=== PATIENT | male | born 1950 | race Caucasian/White ===

== ENCOUNTER 2023-01-29 03:54 | Day surgery (SDC) | payer OTHER ==
[2023-01-25 10:37] VITALS: BMI 27.3
[2023-01-29 06:34] VITALS: RESP 18
[2023-01-29] MEDS ORDERED: ONDANSETRON 4 MG/2 ML VIAL ONE (07:45)
[2023-01-29] MEDS ORDERED: MIDAZOLAM HCL 2 MG/2 ML SINGLE DOSE VIAL ONE (07:45)
[2023-01-29 08:32] VITALS: TEMP 97.2
[2023-01-29 09:16] VITALS: BP 126/80; PULSE 66
== END 2023-01-29 09:20 | disposition home or self-care (01) ==
LOC: JASU-SURG 03:54
PROVIDERS: ATTEND Urology
PROC: 0TF4XZZ Fragmentation in Left Kidney Pelvis, External Approach (ICD-10-PCS; principal; 2023-01-29 08:00)
DX: N20.0 Calculus of kidney (principal)

== ENCOUNTER 2024-01-01 03:55 | Day surgery (SDC) | payer OTHER ==
[2023-12-24 15:47] VITALS: BMI 27.3
[2024-01-01 11:49] VITALS: RESP 20
[2024-01-01] MEDS ORDERED: FENTANYL CITRATE/PF 50 MCG/ML VIAL ONE (14:22)
[2024-01-01] MEDS ORDERED: MIDAZOLAM HCL 2 MG/2 ML SINGLE DOSE VIAL ONE (14:22)
[2024-01-01 15:28] VITALS: BP 136/87; PULSE 102; TEMP 98.2
== END 2024-01-01 16:15 | disposition home or self-care (01) ==
LOC: JASU-SURG 03:55
PROVIDERS: ATTEND Urology
PROC: 0TF4XZZ Fragmentation in Left Kidney Pelvis, External Approach (ICD-10-PCS; principal; 2024-01-01 12:30)
DX: N20.0 Calculus of kidney (principal)